=== PATIENT | male | born 1995 | race Caucasian/White ===

== ENCOUNTER 2018-06-12 20:51 | Emergency (ER) | payer SELFPAY ==
--- NOTE | 2018-06-12 20:57 | ER Report ---
History and Physical Time Seen By MD: 20:57 HPI/ROS CHIEF COMPLAINT: Flank pain, abdominal pain, syncope HISTORY OF PRESENT ILLNESS: 23-year-old male presents ambulatory to the ER complaining of bilateral flank and upper abdominal pain for 4 days. His last bowel movement was 4 days ago. He has constipation. He denies history of previous constipation. He's had some mild nausea. Tonight he had a syncopal episode with severe crampy abdominal pain. Patient notes no fever or chills. Patient denies dysuria or hematuria. Patient denies family history of inflammatory bowel disease. Patient reports a history of vasovagal syncope in the past REVIEW OF SYSTEMS: Respiratory: No cough, no dyspnea. Cardiovascular: No chest pain, no palpitations. Gastrointestinal: As above Musculoskeletal: No back pain. Allergies: Coded Allergies: No Known Drug Allergies (Unverified , 06/12/18) Home Meds Active Scripts Triamcinolone Acetonide 0.1% Oint 15 Gm Tube (TRIAMCINOLONE ACETONIDE 0.1% 15 GM TUBE) 15 Gm Oint...g., 0.25 GM TP BID PRN for affected areas for 1 week, #15 TUBE Prov:GE FINNEY DO 06/12/18 Reviewed Nurses Notes: Yes Old Medical Records Reviewed: Yes Constitutional Vital Sign - Last 24 Hours 06/12/18 06/12/18 06/12/18 06/12/18 20:55 21:00 21:06 21:21 Temp 98.4 Pulse 81 ??? 45 Resp 14 B/P (MAP) 135/90 135/90 (105) Pulse Ox 96 95 O2 Delivery Room Air 06/12/18 06/12/18 06/12/18 06/12/18 21:30 21:36 21:51 22:00 Pulse 54 59 B/P (MAP) 110/68 (82) 112/78 (89) Pulse Ox 96 94 06/12/18 06/12/18 06/12/18 06/12/18 22:06 22:11 22:16 22:21 Pulse 72 64 ? Pulse Ox 97 98 06/12/18 22:26 Pulse ??? Physical Exam General Appearance: The patient is alert, has no immediate need for airway protection and no current signs of toxicity. Skin warm, dry, pink HEENT: Pupils equal and round no injection. Respiratory: Chest is non tender, lungs are clear to auscultation. Cardiac: regular rate and rhythm Gastrointestinal: Abdomen is soft, mild distention non tender, no masses, bowel sounds normal. Musculoskeletal: Neck: Neck is supple and non tender. Extremities have full range of motion and are non tender. Skin: There is a contact dermatitis appearing rash in the right lower abdomen and groin vesicular erythematous DIFFERENTIAL DIAGNOSIS: After history and physical exam differential diagnosis was considered for abdominal pain including but not limited to appendicitis, cholecystitis, gastritis, constipation, colic and urinary tract infection. Additionally,syncope including but not limited to vasovagal syncope, arrhythmia, dehydration, and blood loss. Medical Decision Making Data Points Result Diagram: 06/12/18211906/12/182119 Laboratory Hematology Test 06/12/18 20:57 06/12/18 21:20 Urine Color Yellow Urine Clarity Cloudy Urine pH 8.0 pH (4.8-9.5) Urine Specific [place] 1.010 Urine Protein Negative mg/dL (NEGATIVE) Urine Glucose (UA) Negative mg/dL (NEGATIVE) Urine Ketones Negative mg/dL (NEGATIVE) Urine Blood Negative (NEGATIVE) Urine Nitrite Negative (NEGATIVE) Urine Bilirubin Negative (NEGATIVE) Urine Urobilinogen 0.2 mg/dL (0.2-1.9) Urine Leukocyte Esterase Negative (NEGATIVE) Urine RBC None /HPF (0-2/HPF) Urine WBC None /HPF (0-5/HPF) Urine Squamous Epithelial Cells None /LPF (</=FEW) Urine Amorphous Crystals Few /HPF Urine Bacteria Negative /HPF (NONE-FEW) Urine Mucus Few /HPF (NONE-FEW) Red Blood Count 5.33 M/uL (4.00-5.60) Mean Corpuscular Volume 86.9 fL (80.0-96.0) Mean Corpuscular Hemoglobin 30.6 pg (26.0-33.0) Mean Corpuscular Hemoglobin Concent 35.2 g/dL (32.0-36.0) Red Cell Distribution Width 13.3 % (11.5-14.5) Mean Platelet Volume 8.0 fL (7.2-11.1) Neutrophils (%) (Auto) 50.5 % (39.4-72.5) Lymphocytes (%) (Auto) 32.6 % (17.6-49.6) Monocytes (%) (Auto) 13.7 % (4.1-12.4) Eosinophils (%) (Auto) 2.5 % (0.4-6.7) Basophils (%) (Auto) 0.7 % (0.3-1.4) Nucleated RBC Relative Count (auto) 0.1 /100WBC Neutrophils # (Auto) 2.9 K/uL (2.0-7.4) Lymphocytes # (Auto) 1.9 K/uL (1.3-3.6) Monocytes # (Auto) 0.8 K/uL (0.3-1.0) Eosinophils # (Auto) 0.1 K/uL (0.0-0.5) Basophils # (Auto) 0.0 K/uL (0.0-0.1) Nucleated RBC Absolute Count (auto) 0.01 K/uL Sodium Level 142 mmol/L (137-145) Potassium Level 3.6 mmol/L (3.5-5.0) Chloride Level 103 mmol/L (98-107) Carbon Dioxide Level 27 mmol/L (22-30) Blood Urea Nitrogen 18 mg/dl (9-21) Creatinine 1.00 mg/dl (0.66-1.25) Glomerular Filtration Rate Calc > 60.0 Random Glucose 128 mg/dl (75-110) Calcium Level 9.2 mg/dl (8.4-10.2) Total Bilirubin 0.3 mg/dl (0.2-1.3) Aspartate Amino Transf (AST/SGOT) 28 U/L (0-35) Alanine Aminotransferase (ALT/SGPT) 53 U/L (0-56) Alkaline Phosphatase 53 U/L (0-126) Total Protein 7.5 g/dl (6.3-8.2) Albumin 4.5 g/dl (3.5-5.0) Amylase Level 98 U/L (0-110) Lipase 75 U/L (23-300) Chemistry Test 06/12/18 20:57 06/12/18 21:20 Urine Color Yellow Urine Clarity Cloudy Urine pH 8.0 pH (4.8-9.5) Urine Specific [place] 1.010 Urine Protein Negative mg/dL (NEGATIVE) Urine Glucose (UA) Negative mg/dL (NEGATIVE) Urine Ketones Negative mg/dL (NEGATIVE) Urine Blood Negative (NEGATIVE) Urine Nitrite Negative (NEGATIVE) Urine Bilirubin Negative (NEGATIVE) Urine Urobilinogen 0.2 mg/dL (0.2-1.9) Urine Leukocyte Esterase Negative (NEGATIVE) Urine RBC None /HPF (0-2/HPF) Urine WBC None /HPF (0-5/HPF) Urine Squamous Epithelial Cells None /LPF (</=FEW) Urine Amorphous Crystals Few /HPF Urine Bacteria Negative /HPF (NONE-FEW) Urine Mucus Few /HPF (NONE-FEW) White Blood Count 5.7 k/uL (4.5-11.0) Red Blood Count 5.33 M/uL (4.00-5.60) Hemoglobin 16.3 g/dL (14.0-18.0) Hematocrit 46.3 % (42.0-52.0) Mean Corpuscular Volume 86.9 fL (80.0-96.0) Mean Corpuscular Hemoglobin 30.6 pg (26.0-33.0) Mean Corpuscular Hemoglobin Concent 35.2 g/dL (32.0-36.0) Red Cell Distribution Width 13.3 % (11.5-14.5) Platelet Count 173 K/uL (150-450) Mean Platelet Volume 8.0 fL (7.2-11.1) Neutrophils (%) (Auto) 50.5 % (39.4-72.5) Lymphocytes (%) (Auto) 32.6 % (17.6-49.6) Monocytes (%) (Auto) 13.7 % (4.1-12.4) Eosinophils (%) (Auto) 2.5 % (0.4-6.7) Basophils (%) (Auto) 0.7 % (0.3-1.4) Nucleated RBC Relative Count (auto) 0.1 /100WBC Neutrophils # (Auto) 2.9 K/uL (2.0-7.4) Lymphocytes # (Auto) 1.9 K/uL (1.3-3.6) Monocytes # (Auto) 0.8 K/uL (0.3-1.0) Eosinophils # (Auto) 0.1 K/uL (0.0-0.5) Basophils # (Auto) 0.0 K/uL (0.0-0.1) Nucleated RBC Absolute Count (auto) 0.01 K/uL Glomerular Filtration Rate Calc > 60.0 Calcium Level 9.2 mg/dl (8.4-10.2) Total Bilirubin 0.3 mg/dl (0.2-1.3) Aspartate Amino Transf (AST/SGOT) 28 U/L (0-35) Alanine Aminotransferase (ALT/SGPT) 53 U/L (0-56) Alkaline Phosphatase 53 U/L (0-126) Total Protein 7.5 g/dl (6.3-8.2) Albumin 4.5 g/dl (3.5-5.0) Amylase Level 98 U/L (0-110) Lipase 75 U/L (23-300) Urinalysis Test 06/12/18 20:57 Urine Color Yellow Urine Clarity Cloudy Urine pH 8.0 pH (4.8-9.5) Urine Specific [place] 1.010 Urine Protein Negative mg/dL (NEGATIVE) Urine Glucose (UA) Negative mg/dL (NEGATIVE) Urine Ketones Negative mg/dL (NEGATIVE) Urine Blood Negative (NEGATIVE) Urine Nitrite Negative (NEGATIVE) Urine Bilirubin Negative (NEGATIVE) Urine Urobilinogen 0.2 mg/dL (0.2-1.9) Urine Leukocyte Esterase Negative (NEGATIVE) Urine RBC None /HPF (0-2/HPF) Urine WBC None /HPF (0-5/HPF) Urine Squamous Epithelial Cells None /LPF (</=FEW) Urine Amorphous Crystals Few /HPF Urine Bacteria Negative /HPF (NONE-FEW) Urine Mucus Few /HPF (NONE-FEW) EKG/Imaging EKG Interpretation 12 lead EK Rhythm: Sinus bradycardia with sinus arrhythmia, rate 57 bpm [place]: normal QRS: normal ST segments: normal, no evidence of ischemia or dysrhythmia Imaging X-ray: KUB was obtained. I viewed the images myself on the PACS system. My interpretation of the images is: There is fecal stasis noted throughout the colon. No obvious signs of obstruction. The radiologist interpretation had no clinically significant variation from this interpretation. ED Course/Re-evaluation Clinical Indication for ER IV: IV Access ED Course Patient was admitted to an examination room. H&P was done. The differential diagnoses was considered. On clinical examination. Patient has bilateral flank pain. Patient's treated with an IV. Diagnostic laboratory studies are sent off. KUB shows obvious constipation throughout the fecal stasis throughout colon. Patient's laboratory studies are unremarkable. His urinalysis is negative. Patient's advised to conservative treatment plan for his abdominal pain. Patient's advised MiraLAX twice a day. Clear liquid diet for 24-48 hours. Patient advised to take a bottle of magnesium citrate. Patient advised ibuprofen and Tylenol for pain relief. Patient's given a prescription for triamcinolone ointment. Decision to Disposition Date: Jun 12, 2018 Decision to Disposition Time: 21:40 Depart Departure Latest Vital Signs Vital Signs Date Time Temp Pulse Resp B/P (MAP) Pulse Ox O2 Delivery O2 Flow Rate FiO2 06/12/18 22:26 ??? 06/12/18 22:11 98 06/12/18 22:00 112/78 (89) 06/12/18 20:55 98.4 14 Room Air Impression: Primary Impression: Vasovagal syncope Additional Impressions: Abdominal pain Constipation Contact dermatitis Condition: Improved Disposition: HOME OR SELF-CARE Referrals: JUSTIN CONNOR MD New Scripts Triamcinolone Acetonide 0.1% Oint 15 Gm Tube (TRIAMCINOLONE ACETONIDE 0.1% 15 GM TUBE) 15 Gm Oint...g. 0.25 GM TP BID PRN for affected areas for 1 week, #15 TUBE Prov: GE FINNEY DO 06/12/18 Patient Instructions: Clear Liquid Diet (ED), Constipation (ED), Contact Dermatitis (ED) Additional Instructions: Follow clear liquid diet for 24-48 hours Take MiraLAX twice daily 1 capful Take one bottle magnesium citrate stimulant laxative Follow-up with primary care if unimproved in 3-5 days Problem Qualifiers Additional Impressions: Abdominal pain Abdominal location: upper abdomen, unspecified Qualified Codes: R10.10 - Upper abdominal pain, unspecified Constipation Constipation type: unspecified constipation type Qualified Codes: K59.00 - Constipation, unspecified Contact dermatitis Contact dermatitis type: unspecified Contact dermatitis trigger: unspecified trigger Qualified Codes: L25.9 - Unspecified contact dermatitis, unspecified cause GE FINNEY DO Jun 12, 2018 20:57
[2018-06-12] MEDS ORDERED: ONDANSETRON 4 MG/2 ML VIAL IVP ONE (21:10)
--- NOTE | 2018-06-12 21:17 | EKG ---
FACILITY: [facility] PATIENT NAME: MARY WAGNER : [id number] MR: [id number] V: [id number] EXAM DATE: ORDERING PHYSICIAN: GE FINNEY TECHNOLOGIST: GEOVANNA Manriquez Reason : SYNCOPE Blood Pressure : / mmHG Vent. Rate : 057 BPM Atrial Rate : 057 BPM P-R Int : 164 ms QRS Dur : 104 ms QT Int : 408 ms P-R-T Axes : 032 077 049 degrees QTc Int : 397 ms Sinus bradycardia with sinus arrhythmia Nonspecific ST-T findings No previous ECGs available Confirmed by KRISHNA VAZ ([id number] on 06/13/2018 6:19:46 AM Referred By: Confirmed By:KRISHNA VAZ
[2018-06-12 21:50] LABS: PLATELET COUNT, AUTOMATED 173 K/uL (150-450)
[2018-06-12 22:00] VITALS: BP 112/78
[2018-06-12] MEDS ORDERED: TRIA15OI20 TP (22:16)
--- NOTE | 2018-06-12 22:27 | RADIOLOGY IMAGING REPORT ---
FACILITY: [facility] PATIENT NAME: Gennaro Steward : 1995 MR: [id number] V: [id number] EXAM DATE: ORDERING PHYSICIAN: GE FINNEY TECHNOLOGIST: Location: [facility] [place] Patient: Gennaro Steward : 1995 Visit/Account:[id number] Date of Sevice: 06/12/2018 Abdomen: Indication: Abdominal pain. Technique: 2 supine views of the abdomen were obtained. Comparison: None. Findings: There is a moderate amount of stool throughout the colon and rectum. There are no signs of obstruction or focal dilatation. No suspicious calcifications are identified. The skeletal and soft t issue structures appear unremarkable. IMPRESSION: Moderate stool throughout the colon and rectum. No evidence of obstruction. Report Dictated By: Yamil Zuleta MD at 06/12/2018 10:23 PM Report E-Signed By: Yamil Zuleta MD at 06/12/2018 10:24 PM WSN:[id number]
== END 2018-06-12 22:29 | disposition home or self-care (01) ==
LOC: ER 21:10
DX: L25.9 Unspecified contact dermatitis, unspecified cause (principal); R55 Syncope and collapse; K59.00 Constipation, unspecified; R10.10 Upper abdominal pain, unspecified
CPT/HCPCS: 74018; 81001; 82150; 83690; 85025; 93005; 96374; 99284; J2405; 82040; 82247; 82310; 82374; 82435; 82565; 82947; 84075; 84132; 84155; 84295; 84450; 84460; 84520